=== PATIENT | female | born 1965 ===

== ENCOUNTER 2018-08-09 08:24 | Outpatient (CLI) | payer OTHER | END 2018-08-09 08:26 | disposition home or self-care (01) | LOC: SONOGRAMA 08:24 → MAMO-SONO 09:15 | DX: N84.0 Polyp of corpus uteri (principal); D25.0 Submucous leiomyoma of uterus ==

== ENCOUNTER 2018-11-02 12:50 | Day surgery (SDC) | payer OTHER ==
[2018-11-02] MEDS ORDERED: KETO10TA2 PO (16:46)
[2018-11-02] MEDS ORDERED: PERCOCET 5-3251 EACH PO (16:47)
== END 2018-11-02 19:55 | disposition home or self-care (01) ==
LOC: CIR.AMB 12:50
DX: D25.0 Submucous leiomyoma of uterus (principal); N84.0 Polyp of corpus uteri